=== PATIENT | female | born 1955 | race Caucasian/White ===

== ENCOUNTER → 2022-12-13 | Outpatient (CLI) | payer OTHER ==
[2022-12-13 14:11] LABS: POTASSIUM 4.4 mmol/L (3.5-5.1)
== END | disposition home or self-care (01) ==
LOC: LAB 08:30
PROVIDERS: ATTEND Student in an Organized Health Care Education/Training Program
DX: I10 Essential (primary) hypertension (principal)
CPT/HCPCS: 36415; 80048

== ENCOUNTER → 2022-12-26 | Outpatient (CLI) | payer OTHER ==
[~2022-12-26] MED LIST: IOHEXOL 350 MG/ML 100ML INFUS..BTL IV ONE
== END | disposition home or self-care (01) ==
LOC: RAH 09:24
PROVIDERS: ATTEND Student in an Organized Health Care Education/Training Program
DX: I26.99 Other pulmonary embolism without acute cor pulmonale (principal); R07.9 Chest pain, unspecified
CPT/HCPCS: 75574; Q9967

== ENCOUNTER → 2023-01-31 | Outpatient (CLI) | payer OTHER ==
[2023-01-31 16:25] LABS: CREATININE 0.8 mg/dL (0.5-1.5)
== END | disposition home or self-care (01) ==
LOC: LAB 13:58
PROVIDERS: ATTEND Student in an Organized Health Care Education/Training Program
DX: R51.9 Headache, unspecified (principal)
CPT/HCPCS: 36415; 82565; 84520

== ENCOUNTER → 2023-02-05 | Outpatient (CLI) | payer OTHER | END | disposition home or self-care (01) | LOC: RAH 07:57 | PROVIDERS: ATTEND Student in an Organized Health Care Education/Training Program | DX: R51.9 Headache, unspecified (principal) | CPT/HCPCS: 70496; 70498; Q9967 ==

== ENCOUNTER → 2023-03-20 | Outpatient (CLI) | payer OTHER | END | disposition home or self-care (01) | LOC: SHCH 11:14 | PROVIDERS: ATTEND Student in an Organized Health Care Education/Training Program | DX: R60.0 Localized edema (principal); M79.601 Pain in right arm; Z86.711 Personal history of pulmonary embolism | CPT/HCPCS: 93971 ==

== ENCOUNTER → 2023-03-29 | Outpatient (CLI) | payer OTHER ==
[2023-03-29 12:19] LABS: BASOPHILS % (AUTO) 0.7 % (0.0-5.0); EOSINOPHILS % (AUTO) 1.2 % (0.0-8.0); LYMPHOCYTES % (AUTO) 28.7 % (21.0-51.0); MEAN CORPUSCULAR HEMOGLOBIN 31.5 pg (27.0-33.0); MEAN CORPUSCULAR HGB CONC 34.2 g/dL (32.0-36.0); MEAN CORPUSCULAR VOLUME 92.3 fL (79-99); MONOCYTES % (AUTO) 8.2 % (3.0-13.0); NEUTROPHILS % (AUTO) 60.9 % (40.0-77.0); PLATELET COUNT (AUTO) 320 K/uL (130-400); RED BLOOD CELL COUNT(AUTO) 4.66 MIL/uL (4.00-5.50); WHITE BLOOD COUNT (AUTO) 6.9 K/uL (4.8-10.8)
== END | disposition home or self-care (01) ==
LOC: LAB 10:16
PROVIDERS: ATTEND Student in an Organized Health Care Education/Training Program
DX: R42 Dizziness and giddiness (principal); I10 Essential (primary) hypertension; I25.5 Ischemic cardiomyopathy
CPT/HCPCS: 36415; 85025

== ENCOUNTER → 2023-07-29 | Outpatient (CLI) | payer OTHER ==
[2023-07-29 12:22] LABS: CHOLESTEROL 211 mg/dL (<200); HDL CHOLESTEROL 67 mg/dL (35-85); LDL DIRECT 128 mg/dL (0-99); TRIGLYCERIDES 99 mg/dL (30-200)
== END | disposition home or self-care (01) ==
LOC: LAB 08:44
PROVIDERS: ATTEND Student in an Organized Health Care Education/Training Program
DX: E78.5 Hyperlipidemia, unspecified (principal)
CPT/HCPCS: 36415; 80061

== ENCOUNTER → 2024-07-23 | Outpatient (CLI) | payer OTHER ==
[2024-07-23 12:36] LABS: CHOLESTEROL 231 mg/dL (<200); HDL CHOLESTEROL 76 mg/dL (35-85); LDL DIRECT 139 mg/dL (0-99); TRIGLYCERIDES 62 mg/dL (30-200)
== END | disposition home or self-care (01) ==
LOC: LAB 08:35
PROVIDERS: ATTEND Student in an Organized Health Care Education/Training Program
DX: E78.5 Hyperlipidemia, unspecified (principal)
CPT/HCPCS: 36415; 80061